=== PATIENT | male | born 1945 | race Caucasian/White ===

== ENCOUNTER → 2017-03-08 | Outpatient (CLI) | payer OTHER ==
[~2017-03-08] VITALS: Ht 170.2 cm; Wt 94.4 kg
[~2017-03-08] MED LIST: FLAX OIL1000 MG PO; MULTIPLE VITAMI1 CAP PO; POTASSIUM GLUCONATE PO; PRILOSEC 20MG20 MG PO; PRINIVIL20 MG PO; [UNRECOGNIZED DRUG - OTHER] PO
[2017-03-08 09:26] VITALS: BP 140/92; PULSE 82
[2017-03-08 10:30] VITALS: BP 101/59; PULSE 83
[2017-03-08 10:31] VITALS: BP 108/63; PULSE 86
[2017-03-08 10:32] VITALS: BP 106/63; PULSE 87
[2017-03-08 10:33] VITALS: BP 119/75; PULSE 86
== END ==
LOC: COL.CARD 09:09
DX: R07.89 Other chest pain (principal)
CPT/HCPCS: A9502; J2785

== ENCOUNTER 2022-02-24 11:03 | Emergency (ER) | payer OTHER, MEDICARE ==
[~2022-02-24] VITALS: Ht 172.7 cm; Wt 89.5 kg
[2022-02-24 11:13] VITALS: TEMP 97.8
[2022-02-24 11:46] LABS: BASO % 0.3 % (0.0-2.0); EOS % 0.6 % (0.0-4.0); GRAN # 4.9 K/mm3 (1.4-6.5); GRAN % 69.3 % (42.2-75.2); HEMATOCRIT 39.4 % (42.0-52.0); LYMPH # 1.4 K/mm3 (1.2-3.4); LYMPH % 20.4 % (20.0-51.0); MEAN CELL VOLUME 90 fl (80.0-100.0); MEAN CORPUSCULAR HEMOGLOBIN 30 pg (27-31); MEAN CORPUSCULAR HGB CONC 33 g/dl (33.0-37.0); MEAN PLATELET VOLUME 10.5 fl (7.4-10.4); MONO # 0.6 K/mm3 (0.1-0.6); MONO % 8.4 % (1.7-9.3); PLATELET COUNT 220 K/mm3 (130-400); RED BLOOD COUNT 4.36 M/mm3 (4.20-5.60); REDCELL DISTRIBUTION WIDTH-CV 12.9 % (11.5-14.5)
[2022-02-24 11:52] LABS: ALANINE AMINOTRANSFERASE 41 U/L (0-55); ALBUMIN 3.9 gm/dL (3.4-4.8); ALKALINE PHOSPHATASE 57 U/L (40-150); ANION GAP 12 mmol/L (7-16); AST,SGOT 36 U/L (5-34); BILIRUBIN,TOTAL 0.6 mg/dL (0.2-1.2); BLOOD UREA NITROGEN 32 mg/dL (8-26); CALCIUM 8.4 mg/dL (8.4-10.2); CARBON DIOXIDE 24 mmol/L (23-31); CHLORIDE 105 mmol/L (98-107); CREATININE, serum 1.23 mg/dL (0.72-1.25); GLUCOSE 117 mg/dL (70-99); POTASSIUM 4.7 mmol/L (3.5-4.5); SODIUM 141 mmol/L (136-145); TOTAL PROTEIN 7.1 gm/dL (6.2-8.1)
[2022-02-24 12:11] LABS: TSH w REFLEX 4.777 uIU/mL (0.350-4.940)
[2022-02-24 12:13] LABS: TROPONIN-I < 0.010 ng/mL (0.00-0.033)
[2022-02-24] MEDS ORDERED: HCTZ12.5TAB PO (12:20)
[2022-02-24] MEDS ORDERED: QBRELIS1 MG/1 ML PO (12:20)
[2022-02-24] MEDS ORDERED: LIPITOR 80MG80 MG PO (12:21)
[2022-02-24] MEDS ORDERED: PRIL40 PO (12:21)
[2022-02-24] MEDS ORDERED: NIZORAL CREAM15 GM TP (12:21)
[2022-02-24] MEDS ORDERED: ADCIRCA20 MG PO (12:22)
[2022-02-24] MEDS ORDERED: FLAXSEED OIL1000 MG PO (12:22)
[2022-02-24] MEDS ORDERED: ASPIRIN 81M81 MG/TA2 PO (12:23)
[2022-02-24] MEDS ORDERED: ONE-A-DAY ESSE1 EACH PO (12:23)
[2022-02-24] MEDS ORDERED: MOBIC15 MG PO (12:24)
[2022-02-24] MEDS ORDERED: FLEXERIL 1010 MG/TAB PO (12:24)
[2022-02-24] MEDS ORDERED: NORVASC 5MG5 MG/TAB PO (13:23)
[2022-02-24 13:37] VITALS: BP 146/91; PULSE 79
== END 2022-02-24 13:38 | disposition home or self-care (01) ==
LOC: COL.ER 11:03
PROVIDERS: Emergency Medicine
DX: I10 Essential (primary) hypertension (principal); Z79.899 Other long term (current) drug therapy